=== PATIENT | male | born 1955 | race Caucasian/White ===

== ENCOUNTER → 2016-11-13 | Outpatient (REF) | payer BC | LOC: M SFHCLERA 17:50 | PROVIDERS: ATTEND Physician Assistant | DX: A09 Infectious gastroenteritis and colitis, unspecified (principal) ==

== ENCOUNTER → 2016-11-27 | Outpatient (REF) | payer BC | LOC: M SFHCLERA 18:29 | PROVIDERS: ATTEND Physician Assistant | DX: J02.9 Acute pharyngitis, unspecified (principal) ==

== ENCOUNTER → 2017-05-31 | Outpatient (REF) | payer BC | LOC: M SFHCLERA 18:12 | PROVIDERS: ATTEND Physician Assistant | DX: R19.7 Diarrhea, unspecified (principal); Z53.8 Procedure and treatment not carried out for other reasons ==

== ENCOUNTER → 2017-06-04 | Outpatient (REF) | payer BC | LOC: M SFHCLERA 16:42 | PROVIDERS: ATTEND Family Medicine | DX: R35.0 Frequency of micturition (principal) ==

== ENCOUNTER → 2017-06-04 | Outpatient (CLI) | payer BC ==
--- NOTE | 2017-06-05 02:52 | REP ---
Clinical: Shortness of breath. Technique: PA and lateral. Comparison: 11/01/2015. Findings: Mediastinum and cardiac silhouette are normal. Lung felipe demonstrate chronic-appearing interstitial changes without focal consolidation, effusion, or pneumothorax. Skeletal structures demonstrate age-related changes. Impression: Chronic stable changes. No acute cardiopulmonary process appreciated. Signed by Dilshad Soriano MD 06/05/2017 02:43 A
== END ==
LOC: M LRY 17:29
PROVIDERS: ATTEND Family Medicine
DX: R06.02 Shortness of breath (principal)

== ENCOUNTER → 2017-07-30 | Outpatient (CLI) | payer BC ==
--- NOTE | 2017-07-30 19:41 | REP ---
MRI lumbar spine without contrast: History: Lumbar pain. Chronic low back pain. Status post pain injections. Right-sided sciatica. Technique: Sagittal and axial T1 and T2-weighted scans are acquired in the usual fashion with and without fat saturation. Sequences include spin echo, turbo spin-echo, and STIR imaging sequences. MRI findings: The lumbar vertebral body heights are preserved. Alignment is normal. Conus medullaris is normal in position and appearance at the L1-2 disc. No extra vertebral abnormality is observed. Normal caliber aorta. There is no evidence of spondylolysis or spondylolisthesis. There is degenerative disc narrowing at multiple levels including L2-3, L3-4, L4-5, and L5-S1. There are reactive marrow changes on either side of the L5-S1 disc. Axial and sagittal images at L5-S1 demonstrate mild diffuse disc bulging. There is facet hypertrophy bilaterally. No central canal stenosis is seen. No nerve root compression is seen. At L4-5, there is mild central disc bulging as well. Mild facet hypertrophy is noted. No central canal stenosis is seen. There is mild left-sided neural foraminal narrowing at L4-5. At L3-4, there is no significant abnormality. At L2-3 there is mild central disc bulging. No central canal stenosis or neural foraminal narrowing is seen. Study is otherwise unremarkable. Impression: Mild degenerative spondylosis changes most pronounced at L4-5 and L5-S1. At L4-5 there is mild left-sided neural foraminal narrowing. Signed by Ramy Felipe MD 07/30/2017 07:58 P
== END ==
LOC: M RAD 17:15
PROVIDERS: ATTEND Family Medicine
DX: M54.5 Low back pain (principal)

== ENCOUNTER → 2018-06-10 | Outpatient (REF) | payer BC | LOC: M SFHCLERA 10:54 | DX: J02.9 Acute pharyngitis, unspecified (principal) ==

== ENCOUNTER → 2019-08-26 | Outpatient (REF) | payer BC | LOC: M SFHCLERA 19:31 | PROVIDERS: ATTEND Nurse Practitioner Family | DX: R53.81 Other malaise (principal) ==

== ENCOUNTER → 2021-08-17 | Outpatient (CLI) | payer BC ==
[2021-08-17 07:31] LABS: BASO % 0.4 % (0.0-1.0); EOS % 0.6 % (0.0-3.0); HEMATOCRIT 43.7 % (42.0-52.0); HEMOGLOBIN 15.2 g/dl (13.5-17.5); LYMPH # 2.8 10^3/uL (1.5-5.0); MEAN CORPUSCULAR HEMOGLOBIN 31.7 pg (27.0-33.0); MEAN CORPUSCULAR HGB CONC 34.8 g/dl (32.0-36.5); MEAN CORPUSCULAR VOLUME 91.2 fl (80.0-96.0); MONO # 0.6 10^3/uL (0.0-0.8); NEUTROPHILS # 1.9 10^3/uL (1.5-8.5); NEUTROPHILS % 34.8 % (36.0-66.0); PLATELET COUNT, AUTOMATED 144 10^3/uL (150-450); RED BLOOD COUNT 4.79 10^6/uL (4.30-6.10); WHITE BLOOD COUNT 5.3 10^3/uL (4.0-10.0)
[2021-08-17 08:01] LABS: ALBUMIN 3.7 GM/DL (3.2-5.2); ALT/SGPT 28 U/L (12-78); AMYLASE 54 U/L (25-115); BILIRUBIN,TOTAL 0.4 MG/DL (0.2-1.0); BLOOD UREA NITROGEN 13 MG/DL (7-18); CALCIUM LEVEL 8.8 MG/DL (8.8-10.2); CARBON DIOXIDE LEVEL 28 MEQ/L (21-32); CHLORIDE LEVEL 104 MEQ/L (98-107); CREATININE FOR GFR 0.99 MG/DL (0.70-1.30); GLOMERULAR FILTRATION RATE > 60.0 (>49); GLUCOSE, FASTING 111 MG/DL (70-100); IRON (FE) 43 UG/DL (65-175); LIPASE 97 U/L (73-393); PERCENT SATURATION 15.2 % (19.7-50.0); POTASSIUM SERUM 3.9 MEQ/L (3.5-5.1); SODIUM LEVEL 140 MEQ/L (136-145); TOTAL IRON BINDING CAPACITY 282 UG/DL (250-450)
== END ==
LOC: M LAB 06:22
PROVIDERS: ATTEND Nurse Practitioner Family
DX: A08.4 Viral intestinal infection, unspecified (principal); U07.1 COVID-19

== ENCOUNTER → 2021-12-26 | Outpatient (REF) | payer BC | LOC: M SFHCPLAZ 17:07 | PROVIDERS: ATTEND Physician Assistant | DX: R05.9 Cough, unspecified (principal) ==

== ENCOUNTER 2023-12-01 14:12 | Emergency (ER) | payer MEDICARE ==
[~2023-12-01] VITALS: Ht 167.6 cm; Wt 79.2 kg
[2023-12-01] MEDS ORDERED: PANT40TA29 PO (14:24)
[2023-12-01] MEDS ORDERED: ONDA-83 PO (14:24)
[2023-12-01] MEDS ORDERED: SIME180C25 PO (14:24)
[2023-12-01 15:02] LABS: BASO % 0.2 % (0.0-1.0); EOS # 0.2 10^3/uL (0.0-0.5); EOS % 1.6 % (0.0-3.0); HEMATOCRIT 42.8 % (42.0-52.0); HEMOGLOBIN 14.7 g/dl (13.5-17.5); LYMPH # 3.5 10^3/uL (1.5-5.0); LYMPH % 30.8 % (24.0-44.0); MEAN CORPUSCULAR HEMOGLOBIN 32.6 pg (27.0-33.0); MEAN CORPUSCULAR HGB CONC 34.3 g/dl (32.0-36.5); MEAN CORPUSCULAR VOLUME 94.9 fl (80.0-96.0); MONO # 0.8 10^3/uL (0.0-0.8); MONO % 6.7 % (2.0-8.0); NEUTROPHILS # 6.9 10^3/uL (1.5-8.5); NEUTROPHILS % 60.3 % (36.0-66.0); PLATELET COUNT, AUTOMATED 258 10^3/uL (150-450); RED BLOOD COUNT 4.51 10^6/uL (4.30-6.10); WHITE BLOOD COUNT 11.4 10^3/uL (4.0-10.0)
[2023-12-01 15:25] LABS: LIPASE 32 U/L (12-53)
[2023-12-01 15:27] LABS: ALBUMIN 3.5 G/DL (3.2-5.2); ALKALINE PHOSPHATASE 96 U/L (46-116); ALT/SGPT 27 U/L (7.0-40); AST/SGOT 13 U/L (<34); BILIRUBIN,DIRECT 0.1 MG/DL (<0.4); BILIRUBIN,TOTAL 0.6 MG/DL (0.3-1.2); BLOOD UREA NITROGEN 14 MG/DL (9-23); CALCIUM LEVEL 9.5 MG/DL (8.3-10.6); CARBON DIOXIDE LEVEL 27 MMOL/L (20-31); CHLORIDE LEVEL 107 MMOL/L (98-107); CREATININE FOR GFR 1.08 MG/DL (0.70-1.30); GLOMERULAR FILTRATION RATE > 60.0 (>49); GLUCOSE, FASTING 103 MG/DL (74-106); SODIUM LEVEL 141 MMOL/L (136-145); TOTAL PROTEIN 6.8 G/DL (5.7-8.2)
[2023-12-01] MEDS ORDERED: AZIT-12 PO (17:28)
[2023-12-01] MEDS ORDERED: BENZ200C70 PO (17:28)
[2023-12-01] MEDS ORDERED: MIRA3350 PO (17:28)
[2023-12-01 17:40] VITALS: BP 138/80; TEMP 96.4; O2SAT 99
== END 2023-12-01 17:46 | disposition home or self-care (01) ==
LOC: M ED 14:12
DX: J20.9 Acute bronchitis, unspecified (principal); R10.9 Unspecified abdominal pain; K59.00 Constipation, unspecified; F17.200 Nicotine dependence, unspecified, uncomplicated; Z79.83 Long term (current) use of bisphosphonates; Z79.2 Long term (current) use of antibiotics; Z79.899 Other long term (current) drug therapy